=== PATIENT | male | born 1965 | race Caucasian/White ===

== ENCOUNTER 2019-09-11 13:00 | Inpatient (IN) | payer OTHER ==
[2019-09-11 16:49] VITALS: BMI 23.6
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
--- NOTE | 2019-09-11 19:56 | PN ---
Teaching Attending Note Name of Resident: Luna Webster ATTENDING PHYSICIAN STATEMENT I saw and evaluated the patient. I reviewed the resident's note and discussed the case with the resident. I agree with the resident's findings and plan as documented. SUBJECTIVE: pt here requesting detox from heroin use , reports 5 bags/day IVDU w/ cocaine ,reports 1-3 beers/ day , denies benzo use . Prior [facility] "years ago " , reports rx as below states not taking meds, admits to selling rx . cannabis- denies tobacco - 1 ppd OBJECTIVE: [email or web address] This report was requested by: Precious Piper | Reference #: [id number] Others' Prescriptions Patient Name: Ralph Gerber Date: 1965 Address: [address] [place] [address] Sex: Male Rx Written Rx Dispensed Drug Quantity Days Supply Prescriber Name 08/22/2019 08/22/2019 buprenorphine-naloxone 8-2 mg sl film 30 15 Gonzalo Schilling MD 08/08/2019 08/08/2019 suboxone 8 mg-2 mg sl film 30 30 Gonzalo Schilling MD 07/30/2019 08/01/2019 suboxone 8 mg-2 mg sl film 15 7 Gonzalo Schilling MD Vital Signs - 24 hr 09/11/19 09/11/19 16:41 20:09 Temperature 99.3 F 99.3 F Pulse Rate 79 79 Respiratory 20 20 Rate Blood Pressure 116/80 116/80 ASSESSMENT AND PLAN: OUD - Methadone detox
[2019-09-11] MEDS ORDERED: cloNIDine HCL 0.1 MG TABLET PO PRN (20:04)
[2019-09-11] MEDS ORDERED: BISMUTH SUBSALICYLATE 524 MG/30 ML UD PO PRN (20:04)
[2019-09-11] MEDS ORDERED: METHOCARBAMOL 500 MG TABLET PO PRN (20:04)
[2019-09-11] MEDS ORDERED: IBUPROFEN 400 MG TABLET (FP) PO PRN (20:04)
[2019-09-11] MEDS ORDERED: MAG HYDROX/AL HYDROX/SIMETH 30 ML UNIT-DOSE CUP PO PRN (20:04)
[2019-09-11] MEDS ORDERED: MAGNESIUM HYDROX 2400MG/30ML ORAL SUSPENSION 30 ML CUP PO PRN (20:04)
[2019-09-11] MEDS ORDERED: METHADONE HCL 10 MG TABLET (FOR DETOX USE ONLY) PO ONE (20:04)
[2019-09-11] MEDS ORDERED: MAGNESIUM CITRATE 300 ML BOTTLE PO PRN (20:04)
[2019-09-11] MEDS ORDERED: ACETAMINOPHEN 325 MG TABLET (FP) PO PRN ×2 (20:04)
[2019-09-11] MEDS ORDERED: MENTHOL/PHENOL 1 EACH UD MM PRN (20:04)
[2019-09-11] MEDS: THIAMINE HCL 100 MG TABLET (FP) PO SCH (21:06)
[2019-09-11] MEDS: hydrOXYzine PAMOATE 25 MG CAPSULE (FP) PO PRN (21:06)
[2019-09-11] MEDS: MELATONIN 5 MG TABLETS PO PRN (21:09)
[2019-09-11] MEDS: BACITRACIN 0.9 GM PACKET TP SCH (21:13)
--- NOTE | 2019-09-12 09:06 | PN ---
[facility] CIWA - CIWA Score Nausea/Vomitin-Mild Nausea/No Vomiting Muscle Tremors: 2 Anxiety: 2 Agitation: 1-Slight > Activity Paroxysmal Sweats: 1-Minimal Palms Moist Orientation: 0-Oriented Tacttile Disturbances: 0-None Auditory Disturbances: 0-None Visual Disturbances: 0-None Headache: 0-None Present CIWA-Ar Total Score: 7 S COWS - Scale Resting Pulse: 0= [place] 80 or Below Sweatin= Chills/Flushing Restless Observation: 0= Sits Still Pupil Size: 1= Pupils >than Normal Bone or Joint Aches: 1= Mild Discomfort Runny Nose/ Eye Tearin= None GI Upset > 30mins: 2= Nausea/Diarrhea (no diarrhea) Tremor Observation of Outstretched Hands: 2= Slight Tremor Visible Yawning Observation: 0= None Anxiety or Irritability: 2=Irritable/Anxious Goose Flesh Skin: 3=Piloerection COWS Score: 12 [facility] Progress Note (SOAP) Subjective: 54 years old male admitted on 09/11/19 for alcohol and opiate withdrawal sx management treated with methadone detox regimen adn clonopine 0.5 mg po q6h prn patient tolerated well resting on bed bradycardia denies dizziness resting on bed feeling tired Objective: 09/12/19 09:07 Vital Signs Temperature 97 F L 09/12/19 06:03 Pulse Rate 45 L 09/12/19 06:03 Respiratory Rate 16 09/12/19 06:03 Blood Pressure 108/66 09/12/19 06:03 O2 Sat by Pulse Oximetry (%) 09/12/19 09:08 lab pending Assessment: 09/12/19 09:08 alcohol and opiate withdrawal sx Plan: continue klonopin 0.5 mg po prn and methadone detox
[2019-09-12] MEDS ORDERED: METHADONE HCL 5 MG TABLET (FOR DETOX USE ONLY) PO ONE ×2 (10:00→15:39)
[2019-09-12] MEDS: PRENATAL VITAMINS W/ FOLIC ACID TABLET (FP) PO SCH (10:27)
[2019-09-12 10:56] LABS: HEMOGLOBIN 14.2 GM/dL (11.7-16.9); MCH 30.5 pg (25.7-33.7); MCHC 33.9 g/dl (32.0-35.9); MEAN PLT VOLUME 7.7 fl (7.5-11.1); PLATELET COUNT 278 K/MM3 (134-434); RBC 4.67 M/mm3 (4.00-5.60); RDW 13.8 % (11.9-15.9); WHITE BLOOD COUNT 3.8 K/mm3 (4.0-10.0)
[2019-09-12 10:59] LABS: ALBUMIN 3.4 g/dl (3.4-5.0); BILIRUBIN,TOTAL 0.3 mg/dL (0.2-1); BLOOD UREA NITROGEN 18.8 mg/dL (7-18); CALCIUM 8.5 mg/dL (8.5-10.1); POTASSIUM 4.3 mmol/L (3.5-5.1); TOT PROT 6.4 g/dl (6.4-8.2)
[2019-09-12] MEDS: BACITRACIN 0.9 GM PACKET TP SCH (13:06)
[2019-09-12] MEDS: BACITRACIN 15 GM TUBE TOPICAL OINTMENT TP SCH ×2 (14:30→21:30)
[2019-09-12] MEDS: clonazePAM 0.5 MG TABLET PO PRN ×2 (15:42→21:29)
[2019-09-12] MEDS ORDERED: hydrOXYzine PAMOATE 25 MG CAPSULE (FP) PO ONE (15:42)
[2019-09-12] MEDS ORDERED: METHOCARBAMOL 500 MG TABLET PO ONE (15:42)
--- NOTE | 2019-09-12 15:43 | PN ---
[facility] Progress Note Note: patient presents anxious and restlessness methadone 5 mg po x 1 now vistaril 25 mg po x 1 robaxin 500 mg po x 1 neurontin 100 mg po x 1
[2019-09-12] MEDS ORDERED: GABAPENTIN 100 MG CAPSULE (FP) PO ONE (15:44)
[2019-09-12] MEDS ORDERED: clonazePAM 0.5 MG TABLET PO ONE (15:45)
[2019-09-12] MEDS: GABAPENTIN 100 MG CAPSULE (FP) PO SCH (21:29)
[2019-09-12] MEDS: THIAMINE HCL 100 MG TABLET (FP) PO SCH (21:29)
[2019-09-12] MEDS: hydrOXYzine PAMOATE 25 MG CAPSULE (FP) PO PRN (21:30)
[2019-09-12] MEDS: MELATONIN 5 MG TABLETS PO PRN (21:30)
[2019-09-13] MEDS: GABAPENTIN 100 MG CAPSULE (FP) PO SCH (06:26)
[2019-09-13 09:09] VITALS: BP 112/68; PULSE 70; TEMP 97.8
[2019-09-13] MEDS: clonazePAM 0.5 MG TABLET PO PRN (09:46)
[2019-09-13] MEDS ORDERED: METHADONE HCL 10 MG TABLET (FOR DETOX USE ONLY) PO ONE (10:00)
[2019-09-13] MEDS: PRENATAL VITAMINS W/ FOLIC ACID TABLET (FP) PO SCH (10:46)
[2019-09-13] MEDS: BACITRACIN 15 GM TUBE TOPICAL OINTMENT TP SCH (11:17)
--- NOTE | 2019-09-13 12:15 | DS ---
[facility] Detox Discharge Summary Admission Date: 09/11/19 Discharge Date: 09/13/19 - History Present History: Alcohol Dependence, Opioid Dependence Additional Comments: 54 years old male admitted on 09/11/19 for alcohol and opiate withdrawal sx management treated with klonopin 0.5 mg po prn and methadone detox regimen patient insists to leave the detox unit without apparent reason patient is alert oriented x 3 speech clearly coherently patient refuses ciwa cows refuses discharge exist physical examine - Physical Exam Results Vital Signs: Vital Signs Temperature 97.8 F 09/13/19 09:09 Pulse Rate 70 09/13/19 09:09 Respiratory Rate 16 09/13/19 09:09 Blood Pressure 112/68 09/13/19 09:09 O2 Sat by Pulse Oximetry (%) Pertinent Admission Physical Exam Findings: alcohol and opiate withdrawal sx Laboratory Last Values WBC 3.8 K/mm3 (4.0-10.0) L 09/12/19 08:15 RBC 4.67 M/mm3 (4.00-5.60) 09/12/19 08:15 Hgb 14.2 GM/dL (11.7-16.9) 09/12/19 08:15 Hct 42.0 % (35.4-49) 09/12/19 08:15 MCV 90.0 fl (80-96) 09/12/19 08:15 MCH 30.5 pg (25.7-33.7) 09/12/19 08:15 MCHC 33.9 g/dl (32.0-35.9) 09/12/19 08:15 RDW 13.8 % (11.9-15.9) 09/12/19 08:15 Plt Count 278 K/MM3 (134-434) 09/12/19 08:15 MPV 7.7 fl (7.5-11.1) 09/12/19 08:15 Sodium 144 mmol/L (136-145) 09/12/19 08:15 Potassium 4.3 mmol/L (3.5-5.1) 09/12/19 08:15 Chloride 111 mmol/L (98-107) H 09/12/19 08:15 Carbon Dioxide 29 mmol/L (21-32) 09/12/19 08:15 Anion Gap 4 MMOL/L (8-16) L 09/12/19 08:15 BUN 18.8 mg/dL (7-18) H 09/12/19 08:15 Creatinine 1.0 mg/dL (0.55-1.3) 09/12/19 08:15 Est GFR (CKD-EPI)AfAm 99.85 09/12/19 08:15 Est GFR (CKD-EPI)NonAf 86.15 09/12/19 08:15 Random Glucose 78 mg/dL (74-106) 09/12/19 08:15 Calcium 8.5 mg/dL (8.5-10.1) 09/12/19 08:15 Total Bilirubin 0.3 mg/dL (0.2-1) 09/12/19 08:15 AST 22 U/L (15-37) 09/12/19 08:15 ALT 29 U/L (13-61) 09/12/19 08:15 Alkaline Phosphatase 86 U/L (45-117) 09/12/19 08:15 Total Protein 6.4 g/dl (6.4-8.2) 09/12/19 08:15 Albumin 3.4 g/dl (3.4-5.0) 09/12/19 08:15 RPR Titer Nonreactive (NONREACTIVE) 09/12/19 08:15 HIV 1&2 Antibody Screen Negative 09/12/19 08:15 HIV P24 Antigen Negative 09/12/19 08:15 lab noted - Treatment Hospital Course: Detox Protocol Followed, Responded well Patient has Accepted a Rehab Referral to: community support approach - Medication Discharge Medications: Ambulatory Orders NK [No Known Home Medication] 09/11/19 - Diagnosis (1) Alcohol dependence with withdrawal, uncomplicated Status: Acute (2) Opioid dependence, uncomplicated Status: Acute - AMA Did Patient Leave Against Medical Advice: Yes
[2019-09-14] MEDS ORDERED: METHADONE HCL 5 MG TABLET (FOR DETOX USE ONLY) PO ONE (06:00)
== END 2019-09-13 11:25 | disposition left against medical advice (07) | DRG 770 ==
LOC: YASAS 13:00 → Y3N 19:46
PROVIDERS: ADMIT Allergy & Immunology; ATTEND Allergy & Immunology
PROC: HZ2ZZZZ Detoxification Services for Substance Abuse Treatment (ICD-10-PCS; principal; 2019-09-11)
DX: F10.230 Alcohol dependence with withdrawal, uncomplicated (principal); F11.23 Opioid dependence with withdrawal; F14.20 Cocaine dependence, uncomplicated; F12.20 Cannabis dependence, uncomplicated; F43.10 Post-traumatic stress disorder, unspecified; F32.9 Major depressive disorder, single episode, unspecified; F41.9 Anxiety disorder, unspecified; M54.2 Cervicalgia; M54.89 Other dorsalgia; G89.29 Other chronic pain; Z86.19 Personal history of other infectious and parasitic diseases
CPT/HCPCS: 36415; 80053; 85027; 86593; 87389; J0735

== ENCOUNTER 2021-08-07 14:31 | Inpatient (IN) | payer OTHER ==
[2021-08-07 17:09] VITALS: BMI 23.1
[2021-08-07] MEDS ORDERED: MAGNESIUM HYDROX 2400MG/30ML ORAL SUSPENSION 30 ML CUP PO PRN (17:28)
[2021-08-07] MEDS ORDERED: MENTHOL/PHENOL 1 EACH UD MM PRN (17:28)
[2021-08-07] MEDS ORDERED: ONDANSETRON *ODT* 4 MG TABLET SL PRN (17:28)
[2021-08-07] MEDS ORDERED: NICOTINE POLACRILEX 2 MG GUM BUC PRN (17:28)
[2021-08-07] MEDS ORDERED: MAG HYDROX/AL HYDROX/SIMETH 30 ML UNIT-DOSE CUP PO PRN (17:28)
[2021-08-07] MEDS ORDERED: METHOCARBAMOL 500 MG TABLET PO PRN (17:28)
[2021-08-07] MEDS ORDERED: MAGNESIUM CITRATE 300 ML BOTTLE PO PRN (17:28)
[2021-08-07] MEDS ORDERED: hydrOXYzine PAMOATE 25 MG CAPSULE (FP) PO PRN (17:28)
[2021-08-07] MEDS ORDERED: BISMUTH SUBSALICYLATE 524 MG/30 ML PO PRN (17:28)
[2021-08-07] MEDS ORDERED: ACETAMINOPHEN 325 MG TABLET (FP) PO PRN ×2 (17:28)
[2021-08-07] MEDS ORDERED: diazePAM 5 MG TABLET PO PRN (17:30)
[2021-08-07] MEDS ORDERED: MAG HYDROX/AL HYDROX/SIMETH 30 ML UNIT-DOSE CUP ONE (19:06)
[2021-08-07] MEDS ORDERED: THIAMINE HCL 100 MG TABLET (FP) PO SCH (22:00)
[2021-08-07] MEDS ORDERED: MELATONIN 5 MG TABLETS PO SCH (22:00)
[2021-08-07] MEDS: PANTOPRAZOLE 20 MG TABLET PO SCH (22:34)
[2021-08-08 09:08] VITALS: BP 129/83; PULSE 71; TEMP 97.3
[2021-08-08] MEDS ORDERED: PRENATAL VITAMINS W/ FOLIC ACID TABLET (FP) PO SCH (10:00)
[2021-08-08] MEDS: PANTOPRAZOLE 20 MG TABLET PO SCH (10:46)
[2021-08-08 14:36] LABS: HEMATOCRIT 38.7 % (35.4-49); HEMOGLOBIN 13.2 GM/dL (11.7-16.9); MCH 30.5 pg (25.7-33.7); MCHC 34.2 g/dl (32.0-35.9); MEAN CELL VOLUME 89.2 fl (80-96); PLATELET COUNT 269 10^3/uL (134-434); RBC 4.34 M/mm3 (4.00-5.60); RDW 14.2 % (11.9-15.9); WHITE BLOOD COUNT 4.5 K/mm3 (4.0-10.0)
[2021-08-08 18:49] LABS: CALCIUM 8.8 mg/dL (8.5-10.1)
[2021-08-08 18:50] LABS: ALBUMIN 3.4 g/dl (3.4-5.0)
[2021-08-08 18:53] LABS: CREATININE 0.8 mg/dL (0.55-1.3)
[2021-08-08 18:55] LABS: BILIRUBIN,TOTAL 0.2 mg/dL (0.2-1); TOT PROT 6.7 g/dl (6.4-8.2)
== END 2021-08-08 10:32 | disposition left against medical advice (07) | DRG 770 ==
LOC: YASAS 14:31 → Y3N 19:21
PROVIDERS: ADMIT Allergy & Immunology; ATTEND Allergy & Immunology
PROC: HZ2ZZZZ Detoxification Services for Substance Abuse Treatment (ICD-10-PCS; principal; 2021-08-07)
DX: F10.230 Alcohol dependence with withdrawal, uncomplicated (principal); F11.20 Opioid dependence, uncomplicated; F14.20 Cocaine dependence, uncomplicated; F16.10 Hallucinogen abuse, uncomplicated; F12.20 Cannabis dependence, uncomplicated; F17.210 Nicotine dependence, cigarettes, uncomplicated; F41.9 Anxiety disorder, unspecified; F32.9 Major depressive disorder, single episode, unspecified; F43.10 Post-traumatic stress disorder, unspecified; K21.9 Gastro-esophageal reflux disease without esophagitis; M54.40 Lumbago with sciatica, unspecified side; G89.29 Other chronic pain; Z86.19 Personal history of other infectious and parasitic diseases
CPT/HCPCS: 36415; 80053; 85027; 86780; 93005; 93010; C9803; U0003; U0005